=== PATIENT | male | born 1975 | race American Indian/Alaskan Native ===

== ENCOUNTER 2017-05-11 09:04 | Emergency (ER) | payer MEDICAID ==
[2017-05-11] MEDS ORDERED: PERCOCET 5/325 PO ONE (11:54)
--- NOTE | 2017-05-11 12:02 | Emergency Department Report ---
ED ENT HPI - General Chief complaint: Dental/Oral Stated complaint: TEETH CUTTING INTO TONGUE Time Seen by Provider: 05/11/17 11:53 Source: patient Mode of arrival: Ambulatory Limitations: No Limitations - History of Present Illness Initial comments: 42 year after [place] Citizen male comes in complaining of left tooth pain that has broken off in his mouth now it is interfering with his tongue. Patient reports that his tongue keeps getting scratched by the broken tooth. Patient has been suffering from pain for the last 6 days and has taken no [id number] pain medication. Patient reports that the tooth was on the lower left jaw. He reports no past medical history currently takes no medication and has no known drug allergies. MD complaint: tooth pain -: days(s) (6) Location: tooth # (20) Severity: severe Severity scale (0 -10): 10 Improves with: other (patient has not tried any [id number] medication) Worsens with: other (eating) - Related Data Home Medications Medication Instructions Recorded Confirmed Last Taken traZODone [Desyrel] 200 mg PO QHS 09/18/15 09/18/15 Unknown Previous Rx's Medication Instructions Recorded Last Taken Type ALPRAZolam [Xanax TAB] 1 mg PO BID PRN #30 tab 05/14/15 Unknown Rx Citalopram [celeXA] 20 mg PO QDAY #30 tablet 05/14/15 Unknown Rx Ibuprofen [Motrin 800 MG tab] 800 mg PO Q8HR PRN #30 tablet 05/11/17 Unknown Rx Allergies Allergy/AdvReac Type Severity Reaction Status Date / Time No Known Allergies Allergy Verified 09/18/15 10:42 ED Dental HPI - General Chief complaint: Dental/Oral Stated complaint: TEETH CUTTING INTO TONGUE Time Seen by Provider: 05/11/17 11:53 Source: patient Mode of arrival: Ambulatory Limitations: No Limitations - Related Data Home Medications Medication Instructions Recorded Confirmed Last Taken traZODone [Desyrel] 200 mg PO QHS 09/18/15 09/18/15 Unknown Previous Rx's Medication Instructions Recorded Last Taken Type ALPRAZolam [Xanax TAB] 1 mg PO BID PRN #30 tab 05/14/15 Unknown Rx Citalopram [celeXA] 20 mg PO QDAY #30 tablet 05/14/15 Unknown Rx Ibuprofen [Motrin 800 MG tab] 800 mg PO Q8HR PRN #30 tablet 05/11/17 Unknown Rx Allergies Allergy/AdvReac Type Severity Reaction Status Date / Time No Known Allergies Allergy Verified 09/18/15 10:42 ED Review of Systems ROS: Stated complaint: TEETH CUTTING INTO TONGUE Other details as noted in HPI Constitutional: denies: chills, fever Eyes: denies: eye pain, eye discharge, vision change ENT: dental pain, other (10 pain) Respiratory: denies: cough, shortness of breath, wheezing Cardiovascular: denies: chest pain, palpitations Endocrine: no symptoms reported Gastrointestinal: denies: abdominal pain, nausea, diarrhea Genitourinary: denies: urgency, dysuria Musculoskeletal: denies: back pain, joint swelling, arthralgia Skin: denies: rash, lesions Neurological: denies: headache, weakness, paresthesias Psychiatric: denies: anxiety, depression Hematological/Lymphatic: denies: easy bleeding, easy bruising ED Past Medical Hx - Past Medical History Previous Medical History?: Yes Hx Psychiatric Treatment: Yes (bipolar) - Surgical History Past Surgical History?: Yes Additional Surgical History: hernia repair - Social History Smoking Status: Current Every Day Smoker Substance Use Type: Prescribed - Medications Home Medications: Home Medications Medication Instructions Recorded Confirmed Last Taken Type ALPRAZolam [Xanax TAB] 1 mg PO BID PRN #30 tab 05/14/15 09/18/15 Unknown Rx Citalopram [celeXA] 20 mg PO QDAY #30 tablet 05/14/15 09/18/15 Unknown Rx traZODone [Desyrel] 200 mg PO QHS 09/18/15 09/18/15 Unknown History Ibuprofen [Motrin 800 MG tab] 800 mg PO Q8HR PRN #30 tablet 05/11/17 Unknown Rx ED Physical Exam - General Limitations: No Limitations General appearance: alert, in no apparent distress - Head Head exam: Present: atraumatic, normocephalic - Eye Eye exam: Present: normal appearance - ENT ENT exam: Present: mucous membranes moist - Expanded ENT Exam Expanded Ear exam: Present: normal external inspection Mouth exam: Present: normal external inspection. Absent: laceration (no laceration of tongue or swelling) Teeth exam: Present: fractured tooth # (20). Absent: gingival enlargement 1 - Fractured Throat exam: Positive: normal inspection - Neck Neck exam: Present: normal inspection - Respiratory Respiratory exam: Present: normal lung sounds bilaterally. Absent: respiratory distress - Cardiovascular Cardiovascular Exam: Present: regular rate, normal rhythm. Absent: systolic murmur, diastolic murmur, rubs, gallop - GI/Abdominal GI/Abdominal exam: Present: soft, normal bowel sounds - Rectal Rectal exam: Present: deferred - Extremities Exam Extremities exam: Present: normal inspection - Back Exam Back exam: Present: normal inspection - Neurological Exam Neurological exam: Present: alert, oriented X3 - Psychiatric Psychiatric exam: Present: normal affect, normal mood - Skin Skin exam: Present: warm, dry, intact, normal color. Absent: rash ED Course Vital Signs 05/11/17 09:59 Temperature 97.9 F Pulse Rate 105 H Respiratory 18 Rate Blood Pressure 129/78 O2 Sat by Pulse 97 Oximetry ED Medical Decision Making - Medical Decision Making Patient has been evaluated by this provider fast track. Patient's exam has no gingival enlargement no signs of infection no swelling to the jaw. At this time patient does not need antibiotics pain medication and referral to dentistry This patient is to follow-up with a dentist. I will lists several below. Patient continue with ibuprofen for pain management. Critical care attestation.: If time is entered above; I have spent that time in minutes in the direct care of this critically ill patient, excluding procedure time. ED Disposition Clinical Impression: Tooth pain Disposition: DC-01 TO HOME OR SELFCARE Is pt being admited?: No Does the pt Need Aspirin: No Condition: Stable Instructions: Toothache (ED), Acute dental trauma (ED) Prescriptions: Ibuprofen [Motrin 800 MG tab] 800 mg PO Q8HR PRN #30 tablet PRN Reason: Pain Referrals: PRIMARY CARE,MD [Primary Care Provider] - 3-5 Days Forms: Work/School Release Form(ED)
[2017-05-11 12:38] VITALS: BP 124/83
== END 2017-05-11 12:37 | disposition home or self-care (01) ==
LOC: ED 09:04
DX: K08.89 Other specified disorders of teeth and supporting structures (principal); F31.9 Bipolar disorder, unspecified; F17.200 Nicotine dependence, unspecified, uncomplicated
CPT/HCPCS: 99282

== ENCOUNTER 2021-08-27 13:15 | Emergency (ER) | payer SELFPAY ==
[2021-08-27 14:36] LABS: Amphetamine Screen,Urine Negative; Benzodiazepines Screen,Urine Negative; Cannabinoid Screen,Urine Negative; Cocaine Screen,Urine Negative; Methadone Screen,Urine Negative; Opiate Screen,Urine Negative
[2021-08-27 14:41] LABS: Mucus,Urine 2+ /HPF
[2021-08-27 14:46] LABS: Color,Urine Yellow (Yellow)
[2021-08-27 14:47] LABS: Bilirubin,Urine Negative (Negative); Blood,Urine Negative (Negative); Urobilinogen,Urine < 2.0 mg/dL (<2.0)
[2021-08-27 15:00] LABS: Basophils % (Auto) 0.7 % (0.0-1.8); Eosinophils # (Auto) 0.2 K/mm3 (0.0-0.4); Eosinophils % (Auto) 2.7 % (0.0-4.3); Hematocrit 35.2 % (35.5-45.6); Hemoglobin 11.4 gm/dl (11.8-15.2); Lymphocytes # (Auto) 1.9 K/mm3 (1.2-5.4); Lymphocytes % (Auto) 30.1 % (13.4-35.0); Mean Corpuscular HGB Conc 32 % (32-34); Mean Corpuscular Volume 85 fl (84-94); Monocytes # (Auto) 0.7 K/mm3 (0.0-0.8); Monocytes % (Auto) 10.9 % (0.0-7.3); Platelet Count 355 K/mm3 (140-440); Red Blood Count 4.15 M/mm3 (3.65-5.03); Red Cell Distribution Width 17.7 % (13.2-15.2)
[2021-08-27 15:39] LABS: Blood Urea Nitrogen 12 mg/dL (9-20); Calcium 9.8 mg/dL (8.4-10.2); Hemolysis Index 10
[2021-08-27 15:58] LABS: BUN/Creatinine Ratio 17
[2021-08-27] MEDS ORDERED: KETOROLAC 10 MG TAB PO ONE (17:46)
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
[2021-08-27] MEDS ORDERED: ZIPRASIDONE MESYLATE 20 MG VIAL IM PRN (19:52)
--- NOTE | 2021-08-28 08:21 | Consultation ---
History of Present Illness - Reason for Consult Consult date: 08/28/21 Reason for consult: SI, hallucinations - History of Present Psychiatric Illness The patient was seen today. He is cooperative and polite. He appears to be responding to internal stimuli. He is staring straight with his eyes bucked. He says voices are telling him to do certain things. The patient says life is useless, and he has no direction. The patient endorses being homeless. He says "I have money to pay. I get a check and I don't misuse any of my money. But what do you do when you just don't have any hope or direction." He says he's severely depressed. When asking the patient was he suicidal, he says "well, the voices are telling me to do it. I just don't have the will to live." The patient also says he's a cutter. He says "I cut because it helps me relieve anxiety and stress." PAST PSYCHIATRIC HISTORY: Diagnoses: Manic depressive Suicide attempts or Self-harm behavior: Yes Prior psychiatric hospitalizations: Yes Substance Abuse history: Denies Previous psychiatric medications tried: seroquel, trazodone Outpatient treatment: Yes PAST MEDICAL HISTORY: None reported Family Psychiatric History: None reported or documented SOCIAL HISTORY Marital Status: Single Living Arrangements: Homeless Employment Status: Disabled Access to guns/weapons: Denies Education: History of Abuse: Denies Legal History: Denies REVIEW OF SYSTEMS Constitutional: Negative for weight loss ENT: Negative for stridor Respiratory: Negative for cough or hemoptysis All other systems reviewed and are negative MENTAL STATUS EXAMINATION General Appearance and Behavior: Age appropriate, wearing appropriate clothes, cooperative, polite with questioning, staring intensely at times Cooperation: cooperative Psychomotor Behavior: Psychomotor normal Mood: Depressed Affect and affective range: congruent with stated affect Thought Process: circumstantial Thought Content: hallucinations, SI, hopelessness, helplessness Speech: Normal tone and pace Suicidal Ideation: Yes Homicidal Ideation: Denies Hallucination: Auditory Delusions: None elicited Impulse Control: Limited Insight and Judgment: Limited Memory: Limited Attention: Distracted Orientation: Alert and oriented Diagnoses: Bipolar Disorder Treatment Plan 1013 Seroquel 100mg po BID Prozac 20mg po daily Trazodone 50mg po qhs Sitter: per primary Medical: Per primary Disposition: Recommend acute psychiatric inpatient treatment Will follow. Thanks Case staffed by Dr. Forde Medications and Allergies Allergies Allergy/AdvReac Type Severity Reaction Status Date / Time No Known Allergies Allergy Verified 08/27/21 13:43 Home Medications Medication Instructions Recorded Confirmed Last Taken Type ALPRAZolam [Xanax TAB] 1 mg PO BID PRN #30 tab 05/14/15 09/18/15 Unknown Rx Citalopram [celeXA] 20 mg PO QDAY #30 tablet 05/14/15 09/18/15 Unknown Rx traZODone [Desyrel] 200 mg PO QHS 09/18/15 09/18/15 Unknown History Ibuprofen [Motrin 800 MG tab] 800 mg PO Q8HR PRN #30 tablet 05/11/17 Unknown Rx Active Meds: Active Medications Ziprasidone (Ziprasidone Mesylate 20 Mg Vial) 10 mg IM Q2H PRN PRN Reason: Agitation Last Admin: 08/27/21 20:15 Dose: 10 mg Mental Status Exam - Vital signs Last Vital Signs Temp 98.7 F 08/28/21 03:13 Pulse 96 H 08/28/21 03:13 Resp 18 08/28/21 03:13 BP 137/83 08/28/21 03:13 Pulse Ox 99 08/28/21 03:13 Results Result Diagrams: 08/27/21 14:35 08/27/21 14:35 Abnormal lab results 08/27/21 08/27/21 08/27/21 Range/Units 14:35 14:35 14:35 Hgb 11.4 L (11.8-15.2) gm/dl Hct 35.2 L (35.5-45.6) % MCH 27 L (28-32) pg RDW 17.7 H (13.2-15.2) % [place] % (Auto) 10.9 H (0.0-7.3) % Creatinine 0.7 L (0.8-1.3) mg/dL Glucose 108 H (75-100) mg/dL Ur Specific [place] (1.003-1.030) Salicylates < 0.3 L (2.8-20.0) mg/dL Acetaminophen (10.0-30.0) ug/mL 08/27/21 08/27/21 Range/Units 14:35 Unknown Hgb (11.8-15.2) gm/dl Hct (35.5-45.6) % MCH (28-32) pg RDW (13.2-15.2) % [place] % (Auto) (0.0-7.3) % Creatinine (0.8-1.3) mg/dL Glucose (75-100) mg/dL Ur Specific [place] 1.035 H (1.003-1.030) Salicylates (2.8-20.0) mg/dL Acetaminophen 5.0 L (10.0-30.0) ug/mL All other labs normal.
[2021-08-28] MEDS: FLUoxetine 20 MG CAP PO SCH (09:52)
[2021-08-28] MEDS: QUEtiapine 100 MG TAB PO SCH (09:52)
--- NOTE | 2021-08-28 15:22 | Event Note ---
Date: 08/28/21 Pt's chart reviewed. VSS. Pt denies any complaints. Will continue to monitor.
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
[2021-08-28] MEDS ORDERED: traZODone 50 MG TAB PO SCH (22:00)
[2021-08-29] MEDS: QUEtiapine 100 MG TAB PO SCH ×2 (04:50→10:08)
[2021-08-29 07:41] VITALS: BP 116/71
[2021-08-29] MEDS: FLUoxetine 20 MG CAP PO SCH (10:08)
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
== END 2021-08-29 13:58 ==
LOC: ED 13:15
DX: R45.851 Suicidal ideations (principal); R44.0 Auditory hallucinations; R44.1 Visual hallucinations; F17.200 Nicotine dependence, unspecified, uncomplicated; F31.9 Bipolar disorder, unspecified; Z20.822 Contact with and (suspected) exposure to COVID-19
CPT/HCPCS: 36415; 70450; 80048; 80307; 81001; 85025; 96372; 99285; J3486; U0003; 80320; G0480